=== PATIENT | female | born 1965 | race Caucasian/White ===

== ENCOUNTER 2017-02-12 07:05 | Emergency (ER) | payer BC ==
[2017-02-12 07:13] VITALS: BP 148/94
== END 2017-02-12 08:02 | disposition home or self-care (01) ==
LOC: UCEAST 07:05
DX: R21 Rash and other nonspecific skin eruption (principal)
CPT/HCPCS: 99212; G0463

== ENCOUNTER 2018-02-25 06:47 | Emergency (ER) | payer BC ==
--- NOTE | 2018-02-25 07:44 | ED ---
Lower Extremity - HPI Summary HPI Summary: Patient is a 52-year-old female presenting to the ED from work with a complaint of right lower leg and ankle pain. She states 30 minutes [employer] a facilities maintenance worker dropped a tool box on her calf, she endorses falling forward and twisting her right ankle with swelling. She has not attempted to ambulate. Plantar flexion with pain, denies pain with dorsiflexion. Initially intact. Pulses +2 intact bilaterally both pedally and posterior tibial. She has never injured the ankle or lower extremity before. She appears to be in no acute distress and denies any other complaints at this time. Pain is currently rated a 1/10. - History of Current Complaint Chief Complaint: EDExtremityLower Stated Complaint: ANKLE INJURY Time Seen by Provider: 02/25/18 06:50 Hx Obtained From: Patient Hx Last Menstrual Period: unknown Mechanism Of Injury: Blunt Trauma Onset of Pain: Minutes Onset/Duration: Minutes Severity Initially: Mild Severity Currently: Mild Pain Intensity: 3 Pain Scale Used: 0-10 Numeric Timing: Intermittent Location: Is Discrete @ - right ankle Associated Signs And Symptoms: Positive: Swelling. Negative: Redness, Bruising Aggravating Factor(s): Standing, Ambulation Alleviating Factor(s): Rest Able to Bear Weight: Yes Related History: Occupational Injury - Risk Factors Gout Risk Factors: Age Over 40 DVT Risk Factors: Negative Septic Arthritis Risk Factor: Negative - Allergies/Home Medications Allergies/Adverse Reactions: Allergies Allergy/AdvReac Type Severity Reaction Status Date / Time MS Prednisone [Prednisone] AdvReac Agitation Verified 02/12/17 07:21 PMH/Surg Hx/FS Hx/Imm Hx Previously Healthy: Yes Endocrine/Hematology History: Denies: Hx Diabetes Cardiovascular History: Denies: Hx Hypertension, Hx Pacemaker/ICD History: Denies: Hx Renal Disease Musculoskeletal History: Denies: Hx Scoliosis Sensory History: Denies: Hx Hearing Aid Neurological History: Denies: Hx Headaches Psychiatric History: Denies: Hx Panic Disorder - Surgical History Surgery Procedure, Year, and Place: TUBAL LIGATION - Immunization History Hx Pertussis Vaccination: No Immunizations Up to Date: Unable to Obtain/Confirm Infectious Disease History: No Infectious Disease History: Denies: Hx Clostridium Difficile, Hx Hepatitis, Hx Human Immunodeficiency Virus (HIV), Hx of Known/Suspected MRSA, Hx Shingles, Hx Tuberculosis, Hx Known/ Suspected VRE, Hx Known/Suspected VRSA, History Other Infectious Disease, Traveled Outside the [place] in Last 30 Days - Family History Known Family History: Positive: Hypertension - Social History Occupation: Employed Full-time Lives: With Family Alcohol Use: None Hx Substance Use: No Substance Use Type: Reports: None Hx Tobacco Use: Yes Smoking Status (MU): Heavy Every Day Tobacco Smoker Review of Systems Constitutional: Negative Negative: Fever, Fatigue Cardiovascular: Negative Respiratory: Negative Genitourinary: Negative Positive: no symptoms reported, see HPI Positive: Arthralgia Skin: Negative Neurological: Negative All Other Systems Reviewed And Are Negative: Yes Physical Exam Triage Information Reviewed: Yes Vital Signs On Initial Exam: Initial Vitals Temp Pulse Resp BP Pulse Ox 99.1 F 91 20 119/82 93 02/25/18 06:51 02/25/18 06:51 02/25/18 06:51 02/25/18 06:51 02/25/18 06:51 Vital Signs Reviewed: Yes Appearance: Positive: Well-Appearing, Well-Nourished Skin: Positive: Warm, Skin Color Reflects Adequate Perfusion Head/Face: Positive: Normal Head/Face Inspection Neck: Positive: Supple, No Lymphadenopathy Respiratory/Lung Sounds: Positive: Clear to Auscultation, Breath Sounds Present Cardiovascular: Positive: RRR, Pulses are Symmetrical in both Upper and Lower Extremities Musculoskeletal: Positive: Normal, Strength/ROM Intact Neurological: Positive: Speech Normal Psychiatric: Positive: Normal, Affect/Mood Appropriate AVPU Assessment: Alert Diagnostics - Vital Signs Vital Signs Temp Pulse Resp BP Pulse Ox 02/25/18 06:51 99.1 F 91 20 119/82 93 - Laboratory Lab Statement: Any lab studies that have been ordered have been reviewed, and results considered in the medical decision making process. Lower Extremity Course/Dx - Course Course Of Treatment: During the course of treatment, the patient's evaluated for right lower leg and ankle pain. X-ray obtained and read by myself AGNELLA Durbin as negative for any acute fracture or pathological findings. Patient is encouraged to ambulate. She ambulates well and without pain. This appears to be a contusion with a small amount of swelling just superior to the right ankle. She is encouraged ibuprofen and is discharged at this time. - Diagnoses Provider Diagnoses: Ankle abrasion Discharge - Sign-Out/Discharge Documenting (check all that apply): Discharge/Admit/Transfer - Discharge Plan Condition: Stable Disposition: HOME Forms: *Work Release Referrals: Neeta Nelson NP [Primary Care Provider] - Additional Instructions: Ankle Contusion with swelling Ibuprofen 600mg three times daily for any discomfort Elevate Ice - Billing Disposition and Condition Condition: STABLE Disposition: Home
[2018-02-25 07:45] VITALS: BP 136/81
--- NOTE | 2018-02-25 07:54 | RAD ---
INDICATION: Right ankle pain COMPARISON: None TECHNIQUE: AP, lateral, and oblique views were obtained. FINDINGS: There is no acute fracture. The ankle mortise is intact. There is mild lateral soft tissue swelling. IMPRESSION: NO ACUTE FRACTURE.
== END 2018-02-25 07:43 | disposition home or self-care (01) ==
LOC: ED 06:47
DX: S90.511A Abrasion, right ankle, initial encounter (principal); Z72.0 Tobacco use; W20.8XXA Other cause of strike by thrown, projected or falling object, initial encounter; Y92.9 Unspecified place or not applicable
CPT/HCPCS: 99282

== ENCOUNTER 2024-06-02 15:44 | Observation (INO) ==
[2024-06-02 16:23] LABS: ABS Basophils 0.1 10^3/uL (0.0-0.1); ABS Eosinophils 0.2 10^3/uL (0.0-0.5); ABS Lymphocytes 1.7 10^3/uL (1.0-4.8); ABS Monocytes 0.8 10^3/uL (0.0-0.9); ABS Neutrophils 5.1 10^3/uL (1.5-7.6); ABS Nucleated RBC 0.01 10^3/ul; Eosinophil % 2.2 %; Hematocrit 49.4 % (35-45); Hemoglobin 16.5 g/dL (11.5-14.3); Lymphocyte % 21.7 %; Mean Corpuscular Hemoglobin 28.4 pg (27-33); Mean Corpuscular Hgb Conc 33.4 g/dL (31-36); Mean Corpuscular Volume 85.2 fL (80-97); Mean Platelet Volume 7.3 fL (7.5-11.2); Nucleated Red Blood Cells % 0.2 %/100WBC (0.0-0.8); Platelet Count 236 10^3/uL (150-450); Red Cell Distribution Width 14.2 % (12-17); White Blood Count 7.9 10^3/uL (3.8-11.8)
[2024-06-02 17:02] LABS: Creatinine, Serum 0.69 mg/dL (0.51-0.95); Potassium 3.8 mmol/L (3.5-5.0); eGFR CKD-EPI 101.2 (>60)
[2024-06-02 17:03] LABS: Albumin 4.3 g/dL (3.2-5.2); Albumin/Globulin Ratio 1.5 (1-3); C Reactive Protein 16.27 mg/L (<8.01); Calcium 9.3 mg/dL (8.6-10.3); Globulin 2.8 g/dL (2-4); Magnesium 1.7 mg/dL (1.9-2.7); Total Bilirubin 0.3 mg/dL (0.2-1.0); Total Protein 7.1 g/dL (6.4-8.9)
[2024-06-02] MEDS: Albuterol HFA INHALER 8 gm MDI INH ONE (17:07)
[2024-06-02] MEDS: Magnesium Sulfate 2 gm BAG 2 GM/50 ML BAG IVPB ONE (17:07)
[2024-06-02 18:16] LABS: High Sensitivity Troponin 1 Hr 5 pg/mL (<15)
[2024-06-02] MEDS: Albuterol/Ipratropium NEB.SOL (2.5/0.5 MG) 3 ML NEB.SOLN INH ONE (19:31)
[2024-06-02] MEDS: Albuterol 2.5mg/3 ml (0.083%) NEB.SOLN INH ONE (20:50)
[2024-06-02] MEDS: Dexamethasone IV 4 MG/ML VIAL 1 ml VIAL IV SLOW PU ONE (20:51)
[2024-06-02] MEDS: Potassium Chlor 20 meq TAB.ER PO ONE (22:54)
[2024-06-02] MEDS: Magnesium Sulfate IV 1GM/100ML 1 GM/100 ML BAG IV ONE (22:54)
[2024-06-03] MEDS ORDERED: Levalbuterol 0.63MG/3ML NEB UNIT OF USE INH PRN (00:19)
[2024-06-03] MEDS: Dexamethasone IV 4 MG/ML VIAL 1 ml VIAL IV SLOW PU ONE (00:47)
[2024-06-03] MEDS: Azithromycin 500 mg/250 ml NS 500 MG/250 ML BAG IVPB SCH (00:47)
[2024-06-03] MEDS: Albuterol/Ipratropium NEB.SOL (2.5/0.5 MG) 3 ML NEB.SOLN INH SCH (01:00)
[2024-06-03] MEDS: Enoxaparin 40 MG/0.4 ML SYR SUBCUT SCH (05:46)
[2024-06-03 05:59] LABS: ABS Lymphocytes 0.6 10^3/uL (1.0-4.8); ABS Monocytes 0.1 10^3/uL (0.0-0.9); ABS Neutrophils 7.4 10^3/uL (1.5-7.6); ABS Nucleated RBC 0.01 10^3/ul; Hematocrit 48.5 % (35-45); Hemoglobin 16.5 g/dL (11.5-14.3); Lymphocyte % 7.8 %; Mean Corpuscular Hemoglobin 28.8 pg (27-33); Mean Corpuscular Hgb Conc 33.9 g/dL (31-36); Mean Corpuscular Volume 84.8 fL (80-97); Mean Platelet Volume 7.3 fL (7.5-11.2); Nucleated Red Blood Cells % 0.1 %/100WBC (0.0-0.8); Platelet Count 233 10^3/uL (150-450); Red Blood Count 5.72 10^6/uL (3.63-4.92); Red Cell Distribution Width 14.3 % (12-17); White Blood Count 8.2 10^3/uL (3.8-11.8)
[2024-06-03 07:11] LABS: Calcium 8.7 mg/dL (8.6-10.3); Creatinine, Serum 0.66 mg/dL (0.51-0.95); Magnesium 2.1 mg/dL (1.9-2.7); Potassium 4.7 mmol/L (3.5-5.0); eGFR CKD-EPI 102.3 (>60)
[2024-06-03] MEDS: CMCS: Vilazodone 40 mg TAB (NF) PO SCH (11:16)
[2024-06-03] MEDS: Dexamethasone IV 4 MG/ML VIAL 1 ml VIAL IV SLOW PU SCH (21:40)
[2024-06-04] MEDS: oxyCODONE/Acetamin 5/325 mg TAB PO PRN (00:42)
[2024-06-04] MEDS: Azithromycin 500 mg/250 ml NS 500 MG/250 ML BAG IVPB SCH (01:36)
[2024-06-04] MEDS: Albuterol/Ipratropium NEB.SOL (2.5/0.5 MG) 3 ML NEB.SOLN INH PRN (09:41)
[2024-06-04 10:10] VITALS: BP 149/80
== END 2024-06-04 13:40 | disposition home or self-care (01) ==
LOC: ED 15:44 → EDHOLD 15:44 → MED 06-03 13:21
PROVIDERS: ADMIT Internal Medicine; ATTEND Internal Medicine